=== PATIENT | male | born 2000 | race African-American/Black ===

== ENCOUNTER 2020-08-09 11:45 | Emergency (ER) | payer MEDICAID ==
[2020-08-09 12:00] VITALS: BP 141/84
--- NOTE | 2020-08-09 12:44 | ER Document Report ---
ED Medical Screen (RME) - General Chief Complaint: Palpitations Stated Complaint: CHEST PAIN/RAPID HEART RATE Time Seen by Provider: 08/09/20 12:36 Primary Care Provider: HARRIET NOEL MD [Primary Care Provider] - Follow up as needed Mode of Arrival: Ambulatory Information source: Patient Notes: 20-year-old male patient reports complaints of intermittent chest pain with what he describes as fluctuations in his heart rate. He states his heart rate will speed up and on slow down. He denies any diagnosed history of this. He says it has been intermittent for quite some time. Denies any other associated symptoms. Lung sounds clear and equal bilaterally. Heart sounds S1-S2 present, normal rate. I have greeted and performed a rapid initial assessment of this patient. A comprehensive ED assessment and evaluation of the patient, analysis of test results and completion of the medical decision making process will be conducted by additional ED providers. I have specifically instructed the patient or family members with the patient to immediately return to any nursing staff should anything change in the patient's condition or with their chief complaint. TRAVEL OUTSIDE OF THE [place] IN LAST 30 DAYS: No - Related Data Allergies/Adverse Reactions: No Known Allergies Allergy (Verified 08/09/20 12:36) Past Medical History - Social History Frequency of alcohol use: Social Drug Abuse: None - Immunizations Immunizations up to date: Yes Physical Exam - Vital signs Vitals: Temp Pulse Resp BP Pulse Ox 98.4 F 86 16 141/84 H 98 08/09/20 11:56 08/09/20 11:56 08/09/20 11:56 08/09/20 11:56 08/09/20 11:56 Course - Vital Signs Vital signs: Temp Pulse Resp BP Pulse Ox 98.4 F 86 16 141/84 H 98 08/09/20 12:36 08/09/20 11:56 08/09/20 11:56 08/09/20 11:56 08/09/20 11:56 Doctor's Discharge - Discharge Referrals: HARRIET NOEL MD [Primary Care Provider] - Follow up as needed
--- NOTE | 2020-08-09 13:30 | RADIOLOGY REPORT (SQ) ---
EXAM DESCRIPTION: CHEST SINGLE VIEW IMAGES COMPLETED DATE/TIME: 08/09/2020 1:22 pm REASON FOR STUDY: chest pain COMPARISON: None. EXAM PARAMETERS: NUMBER OF VIEWS: One view. TECHNIQUE: Single frontal radiographic view of the chest acquired. RADIATION DOSE: NA LIMITATIONS: None. FINDINGS: LUNGS AND PLEURA: No opacities, masses or pneumothorax. No pleural effusion. MEDIASTINUM AND HILAR STRUCTURES: No masses. Contour normal. HEART AND VASCULAR STRUCTURES: Heart normal in size. Normal vasculature. BONES: No acute findings. HARDWARE: None in the chest. OTHER: No other significant finding. IMPRESSION: NO ACUTE RADIOGRAPHIC FINDING IN THE CHEST. TECHNICAL DOCUMENTATION: JOB ID: [id number] 2010 [employer]- All Rights Reserved Reading location - IP/workstation name: [email or web address]
--- NOTE | 2020-08-09 14:32 | ER Document Report ---
ED General - General Chief Complaint: Palpitations Stated Complaint: CHEST PAIN/RAPID HEART RATE Time Seen by Provider: 08/09/20 12:36 Primary Care Provider: HARRIET NOEL MD [ACTIVE STAFF] - Follow up as needed AMRITA ALMEIDA MD [ACTIVE PROVISIONAL STAFF] - Follow up as needed Mode of Arrival: Ambulatory TRAVEL OUTSIDE OF THE [place] IN LAST 30 DAYS: No - HPI Notes: 20-year-old male presents to the emergency room today for left-sided chest pain that started a week ago, states the episode lasted about 20 minutes, happens about 4 times a day. Patient states that he also feels like his heart is racing. Denies any radiation of his chest pain. currently right now is not having any chest pain. Reports he did have another episode of this about 2 months ago and it lasted for roughly 2 weeks. He did not follow-up with a primary care or chief customer officer. Patient states that he does drink an excessive amount of energy drinks and Mountain Dew and coffee daily. denies any illicit drug use, denies any preworkout substances. Patient denies any medical history of any cardiac issues, denies any prior hyperthyroidism. Does not take any daily medications. Denies any cardiac issues with his mother and his father. Non-smoker. Denies any fevers chills, shortness of breath, nausea, vomiting, diarrhea, abdominal pain, bowel or bladder dysfunction, numbness or tingling down bilateral lower extremities or upper extremities. - Related Data Allergies/Adverse Reactions: No Known Allergies Allergy (Verified 08/09/20 12:36) Past Medical History - General Information source: Patient - Social History Smoking Status: Never Smoker Frequency of alcohol use: Social Drug Abuse: None Family History: Reviewed & Not Pertinent Patient has homicidal ideation: No - Immunizations Immunizations up to date: Yes Review of Systems - Review of Systems Constitutional: No symptoms reported EENT: No symptoms reported Cardiovascular: See HPI Respiratory: No symptoms reported Gastrointestinal: No symptoms reported Genitourinary: No symptoms reported Male Genitourinary: No symptoms reported Musculoskeletal: No symptoms reported Skin: No symptoms reported Hematologic/Lymphatic: No symptoms reported Neurological/Psychological: No symptoms reported Physical Exam - Vital signs Vitals: Temp Pulse Resp BP Pulse Ox 98.4 F 86 16 141/84 H 98 08/09/20 11:56 08/09/20 11:56 08/09/20 11:56 08/09/20 11:56 08/09/20 11:56 - Notes Notes: MEDICATIONS: I agree with the patient medications as charted by the RN. ALLERGIES: I agree with the allergies as charted by the RN. PAST MEDICAL HISTORY/PAST SURGICAL HISTORY: Reviewed and agree as charted by RN. SOCIAL HISTORY: Reviewed and agree as charted by RN. FAMILY HISTORY: No significant familial comorbid conditions directly related to patient complaint EXAM: Reviewed vital signs as charted by RN. PHYSICAL EXAMINATION:reviewed vital signs by RN GENERAL: Well-appearing, well-nourished and in no acute distress. HEAD: Atraumatic, normocephalic. EYES: Pupils equal round and reactive to light, extraocular movements intact, sclera anicteric, conjunctiva are normal. ENT: Nares patent, oropharynx clear without exudates. Moist mucous membranes. NECK: Normal range of motion, supple without lymphadenopathy LUNGS: Breath sounds clear to auscultation bilaterally and equal. No wheezes rales or rhonchi. HEART: Regular rate and rhythm without murmurs ABDOMEN: Soft, nontender, nondistended abdomen. No guarding, no rebound. No masses appreciated. Musculoskeletal: Normal range of motion, no pitting or edema. No cyanosis. NEUROLOGICAL: Cranial nerves grossly intact. Normal speech, normal gait. Normal sensory, motor exams PSYCH: Normal mood, normal affect. SKIN: Warm, Dry, normal turgor, no rashes or lesions noted. Course - Re-evaluation Re-evalutation: 08/09/20 16:34 Afebrile, vital stable no distress. Nurses notes reviewed. CBC negative for leukocytosis or anemia, CMP negative for hepatic or renal dysfunction. Troponin less than 0.012. EKG negative for STEMI. Chest x-ray unremarkable. TSH 0.39. 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 Ongoing and to speak to patient, it appears that patient has eloped. I have spoken to the patient previously about following up with a chief customer officer possibly getting a Holter monitor, we discussed at length about avoiding any energy drinks, Mountain Dew or coffee. We discussed keeping a written documentation of when he is experiencing this chest pain so he can go over this with his primary care as well as his chief customer officer. Patient eloped prior to going over results as well as referral to chief customer officer. After performing a Medical Screening Examination, I estimate there is LOW risk for RUPTURED ESOPHAGUS, PNEUMOTHORAX, PULMONARY EMBOLISM, ACUTE CORONARY SYNDROME, OR THORACIC AORTIC DISSECTION, thus I consider the discharge disposition reasonable. I have reevaluated this patient multiple times and no significant life threatening changes are noted. The patient and I have discussed the diagnosis and risks, and we agree with discharging home with close follow-up. We also discussed returning to the Emergency Department immediately if new or worsening symptoms occur. We have discussed the symptoms which are most concerning (e.g., bloody sputum, worsening pain or shortness of breath) that necessitate immediate return. - Vital Signs Vital signs: Temp Pulse Resp BP Pulse Ox 98.4 F 86 16 141/84 H 100 08/09/20 12:36 08/09/20 11:56 08/09/20 16:00 08/09/20 11:56 08/09/20 16:00 - Laboratory Result Diagrams: 08/09/20 14:10 08/09/20 14:10 Laboratory results interpreted by me: 08/09/20 08/09/20 14:10 14:10 Carbon Dioxide 31 H BUN 21 H Calcium 10.3 H TSH 0.39 L - EKG Interpretation by Wi EKG shows normal: Sinus rhythm Rate: Normal Rhythm: NSR Additional EKG results interpreted by me: 08/09/20 16:34 Heart rate 65. P axis 11, QRS axis 68, T axis 41. Interpreted by ER supervising physician. No STEMI, no ST segment elevation Discharge - Discharge Clinical Impression: Chest pain Condition: Stable Disposition: ELOPED Referrals: HARRIET NOEL MD [ACTIVE STAFF] - Follow up as needed AMRITA ALMEIDA MD [ACTIVE PROVISIONAL STAFF] - Follow up in 3-5 days
[2020-08-09 14:40] LABS: ABSOLUTE EOSINOPHILS # (AUTO) 0.1 10^3/uL (0.0-0.6); ABSOLUTE LYMPHOCYTES (AUTO) 1.5 10^3/uL (0.5-4.7); ABSOLUTE MONOCYTES (AUTO) 0.5 10^3/uL (0.1-1.4); ABSOLUTE NEUT (AUTO) 3.5 10^3/uL (1.7-8.2); BASOPHILS % (AUTO) 0.8 % (0-2); EOSINOPHILS % (AUTO) 2.2 % (0-6); HEMATOCRIT 47.3 % (37.9-51.0); HEMOGLOBIN 16.6 g/dL (13.5-17.0); LYMPHOCYTES % (AUTO) 26.1 % (13-45); MEAN CORPUSCULAR HEMOGLOBIN 32.3 pg (27.0-33.4); MEAN CORPUSCULAR VOLUME 92 fl (80-97); MONOCYTES % (AUTO) 9.3 % (3-13); PLATELET COUNT 255 10^3/uL (150-450); RED BLOOD COUNT 5.13 10^6/uL (4.35-5.55); RED CELL DISTRIBUTION WIDTH 12.9 % (11.5-14.0); SEGMENTED NEUTROPHILS % (AUTO) 61.6 % (42-78); TOTAL CELLS COUNTED % (AUTO) 100 %; WHITE BLOOD COUNT 5.7 10^3/uL (4.0-10.5)
[2020-08-09 14:57] LABS: ALBUMIN 4.7 g/dL (3.5-5.0); ALKALINE PHOSPHATASE 58 U/L (38-126); ANION GAP 9 (5-19); ASPARTATE AMINO TRANSFERASE 33 U/L (17-59); BILIRUBIN,TOTAL 1.1 mg/dL (0.2-1.3); BLOOD UREA NITROGEN 21 mg/dL (7-20); CALCIUM 10.3 mg/dL (8.4-10.2); CARBON DIOXIDE 31 mmol/L (22-30); CHLORIDE 100 mmol/L (98-107); GLUCOSE 105 mg/dL (75-110); POTASSIUM 4.4 mmol/L (3.6-5.0); TOTAL PROTEIN 7.3 g/dL (6.3-8.2)
[2020-08-09 17:03] LABS: FREE T3 3.11 pg/mL (2.77-5.27); FREE T4 (FREE THYROXINE) 0.76 ng/dL (0.78-2.19)
--- NOTE | 2020-08-10 18:05 | EKG REPORT ---
SEVERITY:- ABNORMAL ECG - SINUS RHYTHM : Confirmed by: Johny Chris MD 10-Aug-2020 18:04:30
--- NOTE | 2020-08-10 18:05 | EKG REPORT ---
SEVERITY:- NORMAL ECG - SINUS RHYTHM : Confirmed by: Johny Chris MD 10-Aug-2020 18:03:49
== END 2020-08-09 16:30 | disposition left against medical advice (07) ==
LOC: ER 11:45
DX: R07.9 Chest pain, unspecified (principal); R00.2 Palpitations; Z53.20 Procedure and treatment not carried out because of patient's decision for unspecified reasons
CPT/HCPCS: 36415; 71045; 80053; 84439; 84443; 84481; 84484; 85025; 93005; 93010; 99281